=== PATIENT | male | born 1955 | race American Indian/Alaskan Native ===

== ENCOUNTER 2016-09-13 06:50 | Day surgery (SDC) | payer OTHER ==
[2016-09-13] MEDS ORDERED: NACL 0.9% 500 ML 500 ML IV SCH (08:00)
[2016-09-13] MEDS ORDERED: HEPARIN/NS 5000 UNIT/500ML(CATH LAB) 1,000 ML IR ONE (08:14)
[2016-09-13] MEDS ORDERED: HEPARIN 10,000 UNITS/10 ML ONE (08:14)
[2016-09-13] MEDS ORDERED: SUBLIMAZE ONE (08:15)
[2016-09-13] MEDS ORDERED: VERSED ONE (08:15)
[2016-09-13] MEDS ORDERED: CALAN ONE (08:15)
[2016-09-13] MEDS ORDERED: XYLOCAINE 2% INFILTRATI ONE (08:16)
[2016-09-13 12:08] VITALS: BP 142/67
--- NOTE | 2016-09-13 15:18 | Cardiac Catherization Report ---
INDICATION: A 61-year-old -[place] gentleman with history of hypertension and history of transient ischemic attack. Echocardiogram showing ejection fraction 45%. Because of low ejection fraction, the patient is scheduled for cardiac catheterization for definitive diagnosis and treatment. This is performed to rule out any underlying coronary artery disease. The patient and are aware of the procedure, potential complications, and alternatives of therapy available. DESCRIPTION OF PROCEDURE: The patient was brought to the catheterization laboratory in a fasting condition. The right wrist area and forearm thoroughly cleansed with Betadine solution and sterile drapes were applied. Local anesthesia was achieved using 2% Xylocaine. Right radial artery puncture was made using 21-gauge arterial puncture needle. A 6-Mexican sheath was introduced. A 5-Mexican multipurpose catheter was used to obtain the angiograms of the right coronary artery in multiple views followed by left ventriculogram done in YATES projection using power injector. A 32 mL of dye was injected at 8 mL per second. Subsequently, 5-Mexican TIG catheter was used to obtain the angiograms of the left coronary artery in multiple views. At the end of the procedure, catheter and sheath were removed. The patient was sedated with IV Versed and fentanyl. The patient received 5 mg of intra-arterial verapamil and 3000 units of intravenous heparin. The patient tolerated the procedure well. No untoward complications noted. Pressure bandage will be applied for hemostasis. Following findings were noted. HEMODYNAMICS: 1. Opening aortic pressure 156/70, LV pressure 158/29. No gradient across the aortic valve. Estimated ejection fraction 40 to 45%. 2. Left ventriculogram done in YATES projection using power injector showed left ventricular size is upper limits of normal. Left ventricle is mildly dilated. There is mild diffuse hypokinesis. Ejection fraction was felt to be 40 to 45%. No significant mitral regurgitation was noted. 3. Right coronary artery dominant vessel, tortuous arteries, but angiographically smooth and normal. 4. Left coronary artery is normal from left coronary cusp. Left main is normal. LAD curves around the apex. LAD and its branches, circumflex artery and its branches are very tortuous, but angiographically smooth and normal. FINAL IMPRESSION: 1. Left ventricular size is upper limits of normal with mild left ventricular dysfunction, ejection fraction around 45%. 2. Normal coronary anatomy angiographically. His arteries are very tortuous. 3. Procedure was uncomplicated. At this time, the patient has mild left ventricular dysfunction and findings are suggestive of mildly dilated cardiomyopathy. No untoward complications were noted. Findings were explained to the patient. JOB# [id number] SARAH/MARILYN BEARD
--- NOTE | 2016-09-14 12:23 | Short Stay Summary ---
Short Stay Documentation Date of service: 09/13/16 - History H&P: obtained from office - Allergies and Medications Current Medications: Allergies No Known Allergies Allergy (Verified 09/13/16 08:04) Home Medications Medication Instructions Recorded Confirmed Last Taken Type Propranolol HCl [Innopran Xl] 80 mg PO DAILY 09/12/16 09/13/16 09/13/16 04:30 History Tamsulosin [Flomax] 0.4 mg PO QDAY 09/12/16 09/13/16 09/12/16 History Aspirin [Aspirin TAB] 325 mg PO DAILY 09/13/16 09/13/16 09/13/16 04:30 History - Brief post op/procedure progress note Date of procedure: 09/13/16 Pre-op diagnosis: abnormal stress test Post-op diagnosis: same Procedure: LHC - please see dictated cath report Anesthesia: local Estimated blood loss: none Pathology: none Condition: stable - Hospital course Hospital course: Pt is a 61 YO male with a past medical history significant for HTN, CMP, TIA, and abnormal stress test. He presented for scheduled elective LHC and subsequently underwent LHC via right radial artery per Dr. Shaw which revealed normal coronaries. He remained clinically and hemodynamically stable throughout the procedure and recovery and was discharged home following the completion of his post-cath order set. - Disposition Condition at discharge: Stable Disposition: DISCHARGED TO HOME OR SELFCARE - Discharge Diagnoses (1) HTN (hypertension) Status: Chronic Qualifiers: Hypertension type: H (2) History of TIA (transient ischemic attack) Status: Chronic (3) Nonischemic cardiomyopathy Status: Chronic (4) Abnormal stress test Status: Chronic Short Stay Discharge Plan Activity: advance as tolerated Weight Bearing Status: Full Weight Bearing Diet: low fat, low cholesterol, low salt Wound: open to air, keep clean and dry Additional Instructions: Make follow up appointtment wit Dr. Piper in 7days [phone] Follow up with: SABI JACK DO [Primary Care Provider] - 7 Days IMAN MANN MD [Staff Physician] - 7 Days Forms: CardCath PCI D/C Instructions, Post Sedation D/C Instructions
== END 2016-09-13 12:30 | disposition home or self-care (01) ==
LOC: OPU 06:50
PROVIDERS: ATTEND Internal Medicine
DX: R94.39 Abnormal result of other cardiovascular function study (principal); I10 Essential (primary) hypertension; F12.90 Cannabis use, unspecified, uncomplicated; Z86.73 Personal history of transient ischemic attack (TIA), and cerebral infarction without residual deficits; Z72.89 Other problems related to lifestyle; Z79.899 Other long term (current) drug therapy
CPT/HCPCS: 93005; 93010; 93458; C1887; C1894; J1644; J2250; J3010; J7040; Q9967